=== PATIENT | male | born 1945 | race Caucasian/White ===

== ENCOUNTER 2018-04-23 12:47 | Emergency (ER) | payer OTHER ==
[2018-04-23] MEDS ORDERED: NS 1,000 ML IV ONE (14:19)
[2018-04-23] MEDS ORDERED: NS 2,400 ML IV ONE (14:20)
--- NOTE | 2018-04-23 14:31 | EDPHY ---
H & P Stated Complaint: Feeling disoriented since about? yesterday afternooon--found walking naked Time Seen by Provider: 04/23/18 14:12 HPI/ROS: CHIEF COMPLAINT: Confusion HISTORY OF PRESENT ILLNESS: The patient is a 72-year-old female whose daughter brings him to the emergency department for confusion. He is visiting from [place] and got here yesterday. No fever. No nausea vomiting or diarrhea. No pain. No headache. Patient states that he was extremely dehydrated and had a dry mouth . His daughter has been giving him water and he states that he is starting to feel better. His daughter states that last night he got up and was wandering around the house. The patient states that this is not unusual for him. Then this morning they took him to the gym and he got confused and walked into the swimming area without any clothes on. The daughter states that his symptoms seem to fluctuate. She is concerned about the medications he is on because in the past he has abused opiates. He is currently not on opiates but is on duloxetine, gabapentin and Seroquel. He also takes Eliquis for history of PE. Patient denies chest pain or shortness of breath. He denies headache or neck pain. No urinary symptoms. He does have some sutured wounds to his right forearm from plastic surgery for skin cancer. These are healing well. Patient thinks that he was primarily dehydrated. The patient tells me that he has not taken his medications for the last 2 days but the daughter does not think this is true. Severity: Moderate Modifying factors: Thinks he is feeling much better with hydration REVIEW OF SYSTEMS: Constitutional: See HPI denies: chills, fever, recent illness, recent injury EENTM: denies: blurred vision, double vision, nose congestion Respiratory: denies: cough, shortness of breath Cardiac: denies: chest pain, irregular heart rate, lightheadedness, palpitations Gastrointestinal/Abdominal: denies: abdominal pain, diarrhea, nausea, vomiting, blood streaked stools Genitourinary: denies: dysuria, frequency, hematuria, pain Musculoskeletal: denies: joint pain, muscle pain Skin: denies: lesions, rash, jaundice, bruising Neurological: See HPI denies: headache, numbness, paresthesia, tingling, dizziness, weakness Hematologic/Lymphatic: denies: blood clots, easy bleeding, easy bruising Immunologic/allergic: denies: HIV/AIDS, transplant 10 systems reviewed and negative except as noted EXAM: GENERAL: Moderately confused about the day of the week, slightly dry and in no acute distress. HEAD: Atraumatic, normocephalic. EYES: Pupils equal round and reactive to light, extraocular movements intact, sclera anicteric, conjunctiva are normal. ENT: Slightly dry mucous membranes, TMs normal, nares patent, oropharynx clear without exudates. NECK: Normal range of motion, supple without lymphadenopathy or JVD. LUNGS: Breath sounds clear to auscultation bilaterally and equal. No wheezes rales or rhonchi. HEART: Regular rate and rhythm without murmurs, rubs or gallops. ABDOMEN: Soft, nontender, normoactive bowel sounds. No guarding, no rebound. No masses appreciated. BACK: No CVA tenderness, no spinal tenderness, step-offs or deformities EXTREMITIES: Normal range of motion, no pitting or edema. No clubbing or cyanosis. NEUROLOGICAL: Cranial nerves II through XII grossly intact. Normal speech, normal gait. 5/5 strength, normal movement in all extremities, normal sensation , normal reflexes PSYCH: Normal mood, normal affect. SKIN: Warm, dry, normal turgor, no visible rashes or lesions. Source: Patient Exam Limitations: No limitations - Medical/Surgical History Hx Asthma: No Hx Chronic Respiratory Disease: No Hx Diabetes: Yes Hx Cardiac Disease: No Hx Renal Disease: No Hx Cirrhosis: No Hx Alcoholism: No Hx HIV/AIDS: No Hx Splenectomy or Spleen Trauma: No Other PMH: hx of opiate addiction. hyperlipidemia. prolapse mitral valve. spont pneumo. dvt x3 PE - Family History Significant Family History: No pertinent family hx - Social History Smoking Status: Heavy smoker Alcohol Use: Sober Drug Use: None Constitutional: Initial Vital Signs Temperature (C) 37.0 C 04/23/18 12:53 Heart Rate 89 04/23/18 12:53 Respiratory Rate 16 04/23/18 12:53 Blood Pressure 137/69 H 04/23/18 12:53 O2 Sat (%) 94 04/23/18 12:53 O2 Delivery Mode Room Air Allergies/Adverse Reactions: No Known Allergies Allergy (Unverified 04/23/18 12:50) Home Medications: Medication Instructions Recorded Atorvastatin Calcium 04/23/18 Duloxetine HCl 04/23/18 Eliquis 04/23/18 Gabapentin 04/23/18 Metoprolol Tartrate 04/23/18 Quetiapine Fumarate 04/23/18 Medical Decision Making - Diagnostics EKG Interpretation: An EKG obtained and was read and documented in trace view. Please see trace view for full reading and report. Sinus rhythm, no acute ischemic changes or arrhythmias. Imaging Results: Imaging Impressions Chest X-Ray 04/23/18 14:21 Impression: 1. Suspect airways disease with possible superimposed right middle lobe pneumonia with follow-up recommended. 2. Borderline cardiac enlargement without pulmonary edema. Imaging: Discussed imaging studies w/ on call pharmacy technician Radiologist ED Course/Re-evaluation: 3:45 p.m. the patient feels completely better. He is ambulating back and forth to the bathroom. He states that he feels better now that he is hydrated. His lab work and imaging is reassuring. We discussed his x-ray results. He states that he has scar tissue on the right side because of previous pneumothorax. He does not have a fever or cough. No white blood cell count. I do not think that he has pneumonia clinically. Patient and daughter are in agreement that he is safe to go home. They declined further workup or testing. We discussed indications for returning to the emergency department. Differential Diagnosis: Partial list of the Differential diagnosis considered include but were not limited to; dehydration, altered mental status, electrolyte abnormality, medication reaction and although unlikely based on the history and physical exam , I also considered urinary tract infection, pneumonia, CVA. I discussed these differential diagnoses and the plan with the patient as well as the usual and expected course. The patient understands that the diagnosis is provisional and that in medicine we are not always correct and that further workup is often warranted. Usual and customary warnings were given. All of the patient's questions were answered. The patient was instructed to return to the emergency department should the symptoms at all worsen or return, otherwise to followup with the physician as we discussed. - Data Points Laboratory Results: Laboratory Results 04/23/18 14:55 04/23/18 14:55 04/23/18 04/23/18 04/23/18 15:05 14:55 14:55 WBC RBC Hgb Hct MCV MCH MCHC RDW Plt Count MPV Neut % (Auto) Lymph % (Auto) Taney % (Auto) Eos % (Auto) Baso % (Auto) Nucleat RBC Rel Count Absolute Neuts (auto) Absolute Lymphs (auto) Absolute Monos (auto) Absolute Eos (auto) Absolute Basos (auto) Absolute Nucleated RBC Immature Gran % Immature Gran # PT 14.5 SEC SEC (12.0-15.0) INR 1.11 (0.83-1.16) APTT 31.0 SEC SEC (23.0-38.0) VBG Lactic Acid 1.0 mmol/L mmol/L (0.7-2.1) Sodium 140 mEq/L mEq/L (135-145) Potassium 4.5 mEq/L mEq/L (3.3-5.0) Chloride 103 mEq/L mEq/L (97-110) Carbon Dioxide 27 mEq/l mEq/l (22-31) Anion Gap 10 mEq/L mEq/L (6-14) BUN 15 mg/dL mg/dL (7-23) Creatinine 0.9 mg/dL mg/dL (0.7-1.3) Estimated GFR > 60 Glucose 94 mg/dL mg/dL (70-100) Calcium 9.5 mg/dL mg/dL (8.5-10.4) Total Bilirubin 0.6 mg/dL mg/dL (0.1-1.4) Conjugated Bilirubin 0.4 mg/dL mg/dL (0.0-0.5) Unconjugated Bilirubin 0.2 mg/dL mg/dL (0.0-1.1) AST 20 IU/L IU/L (17-59) ALT 19 IU/L L IU/L (21-72) Alkaline Phosphatase 88 IU/L IU/L (38-126) Total Protein 7.2 g/dL g/dL (6.3-8.2) Albumin 4.5 g/dL g/dL (3.5-5.0) Lipase 73 IU/L IU/L (23-300) Urine Color Urine Appearance Urine pH Ur Specific [place] Urine Protein Urine Ketones Urine Blood Urine Nitrate Urine Bilirubin Urine Urobilinogen Ur Leukocyte Esterase Urine RBC Urine WBC Ur Epithelial Cells Urine Mucus Urine Glucose 04/23/18 04/23/18 14:55 14:00 WBC 7.39 10^3/uL 10^3/uL (3.80-9.50) RBC 4.34 10^6/uL L 10^6/uL (4.40-6.38) Hgb 13.3 g/dL L g/dL (13.7-17.5) Hct 40.1 % % (40.0-51.0) MCV 92.4 fL fL (81.5-99.8) MCH 30.6 pg pg (27.9-34.1) MCHC 33.2 g/dL g/dL (32.4-36.7) RDW 13.9 % % (11.5-15.2) Plt Count 154 10^3/uL 10^3/uL (150-400) MPV 9.4 fL fL (8.7-11.7) Neut % (Auto) 74.0 % % (39.3-74.2) Lymph % (Auto) 16.8 % % (15.0-45.0) Taney % (Auto) 6.8 % % (4.5-13.0) Eos % (Auto) 1.4 % % (0.6-7.6) Baso % (Auto) 0.5 % % (0.3-1.7) Nucleat RBC Rel Count 0.0 % % (0.0-0.2) Absolute Neuts (auto) 5.47 10^3/uL 10^3/uL (1.70-6.50) Absolute Lymphs (auto) 1.24 10^3/uL 10^3/uL (1.00-3.00) Absolute Monos (auto) 0.50 10^3/uL 10^3/uL (0.30-0.80) Absolute Eos (auto) 0.10 10^3/uL 10^3/uL (0.03-0.40) Absolute Basos (auto) 0.04 10^3/uL 10^3/uL (0.02-0.10) Absolute Nucleated RBC 0.00 10^3/uL 10^3/uL (0-0.01) Immature Gran % 0.5 % % (0.0-1.1) Immature Gran # 0.04 10^3/uL 10^3/uL (0.00-0.10) PT INR APTT VBG Lactic Acid Sodium Potassium Chloride Carbon Dioxide Anion Gap BUN Creatinine Estimated GFR Glucose Calcium Total Bilirubin Conjugated Bilirubin Unconjugated Bilirubin AST ALT Alkaline Phosphatase Total Protein Albumin Lipase Urine Color YELLOW Urine Appearance CLEAR Urine pH 6.0 (5.0-7.5) Ur Specific [place] 1.005 (1.002-1.030) Urine Protein NEGATIVE (NEGATIVE) Urine Ketones NEGATIVE (NEGATIVE) Urine Blood NEGATIVE (NEGATIVE) Urine Nitrate NEGATIVE (NEGATIVE) Urine Bilirubin NEGATIVE (NEGATIVE) Urine Urobilinogen NEGATIVE EU EU (0.2-1.0) Ur Leukocyte Esterase NEGATIVE (NEGATIVE) Urine RBC 1-3 /hpf /hpf (0-3) Urine WBC 1-3 /hpf /hpf (0-3) Ur Epithelial Cells TRACE /lpf /lpf (NONE-1+) Urine Mucus TRACE /lpf /lpf (NONE-1+) Urine Glucose NEGATIVE (NEGATIVE) Medications Given: Discontinued Medications Sodium Chloride (Ns) 1,000 mls @ 0 mls/hr IV EDNOW ONE; Wide Open PRN Reason: Protocol Stop: 04/23/18 14:20 Last Admin: 04/23/18 15:07 Dose: 1,000 mls Sodium Chloride (Ns) 2,400 mls @ 4,800 mls/hr 30 ml/kg infuse over 30 min ( 2400 ml) IV EDNOW ONE PRN Reason: Protocol Stop: 04/23/18 14:49 Last Admin: 04/23/18 15:07 Dose: 2,400 mls Departure - Departure Disposition: Home, Routine, Self-Care Clinical Impression: Dehydration, moderate, Confusion Condition: Fair Instructions: Dehydration (ED), Altered Mental Status (ED) Referrals: B[facility] STRATTON [Other] - 1 day, if not improved
[2018-04-23 15:16] LABS: PLATELET COUNT 154 10^3/uL (150-400)
[2018-04-23 15:44] LABS: INR 1.11 (0.83-1.16); PROTIME(PATIENT) 14.5 SEC (12.0-15.0)
--- NOTE | 2018-04-23 15:55 | CPEKG ---
Test Reason : OPEN Blood Pressure : / mmHG Vent. Rate : 083 BPM Atrial Rate : 082 BPM P-R Int : 246 ms QRS Dur : 099 ms QT Int : 408 ms P-R-T Axes : 042 017 041 degrees QTc Int : 480 ms Sinus rhythm Prolonged WI interval Left atrial enlargement Abnormal R-wave progression, early transition Borderline prolonged QT interval Confirmed by Cosme Alvarado ([id number]) on 04/23/2018 3:54:29 PM Referred By: Confirmed By:Cosme Alvarado
[2018-04-23 16:05] VITALS: BP 163/89
== END 2018-04-23 16:08 | disposition home or self-care (01) ==
DX: E86.0 Dehydration (principal); R41.0 Disorientation, unspecified; Z86.711 Personal history of pulmonary embolism; Z79.01 Long term (current) use of anticoagulants; F17.200 Nicotine dependence, unspecified, uncomplicated